=== PATIENT | female | born 1970 | race Caucasian/White ===

== ENCOUNTER 2019-12-07 08:30 | Emergency (ER) | payer BC, OTHER ==
[~2019-12-07] VITALS: Ht 165.1 cm; Wt 133.0 kg
[~2019-12-07 08:30] MED LIST: AMOX-260 PO; AMOX875T PO; ASPI81TA59 PO; CALC-515 PO; CALC200T3 PO; CLON1PAT9 TD; CYAN10002 IJ; DEXT30TA2 PO; DULO60CA6 PO; ERGO500027 PO; FENO145T3 PO; FENT1PAT17 TP; HYDR-1179 PO; HYDR-2155 PO; HYDR-3165 PO; METF10007 PO; METO25TA4 PO; MG T1TAB PO; MV W1TAB2 PO; NIAC1000 PO; OMEG-33 PO; OMEP20CA5 PO; ONDA4TAB10 SL; OXYC-411 PO; PANT40TA3 PO; PROG200C15 PO; PROM25SU33 RC; QUET100T4 PO; SERT100T PO; THYR32.57; VALS1TAB22 PO; [UNRECOGNIZED DRUG - CODE] PO
[2019-12-07] MEDS ORDERED: MORPHINE SULFATE 4 MG/ML DISP.SYRIN. IM ONE (09:15)
[2019-12-07] MEDS ORDERED: HYDR-3165 PO (09:17)
--- NOTE | 2019-12-07 09:17 | PHYS DOC ---
Past History Past Medical History: Anxiety, Bipolar, Diabetes, High Cholesterol, Hypertension, Hypothyroid Past Surgical History: Cholecystectomy, Hysterectomy Smoking: Cigarettes, Greater than 1 pack/day Alcohol Use: None Drug Use: Marijuana, Methadone, Other Adult General Chief Complaint Chief Complaint: Left knee pain [facility] HPI Patient is a 49-year-old female who is obese, history of chronic left knee ligament tear. She had an MRI done last year of her left knee, shown a tear in 1 of her left knee ligament. Patient has been doing okay until about 4 days ago she started having pain again, she feels like she heard something snapped in her left knee. Patient deny falling or twisted her knee. Patient is complaining of pain whenever she walks. Patient want an MRI done today of her left knee, did not want x-ray done. Patient has been able to walk on her left knee but with pain. Review of Systems Review of Systems Constitutional: Denies fever or chills [] Eyes: Denies change in visual acuity, redness, or eye pain [] HENT: Denies nasal congestion or sore throat [] Respiratory: Denies cough or shortness of breath [] Cardiovascular: No additional information not addressed in HPI [] GI: Denies abdominal pain, nausea, vomiting, bloody stools or diarrhea [] : Denies dysuria or hematuria [] Musculoskeletal: Denies back pain. Positive for left knee pain. Integument: Denies rash or skin lesions [] Neurologic: Denies headache, focal weakness or sensory changes [] Endocrine: Denies polyuria or polydipsia [] All other systems were reviewed and found to be within normal limits, except as documented in this note. Allergies Allergies Allergies Coded Allergies Type Severity Reaction Last Updated Verified Sulfa (Sulfonamide Antibiotics) Allergy Intermediate Hives 12/07/19 Yes ketorolac Allergy Intermediate 12/07/19 No tramadol Allergy Intermediate Hives 12/07/19 Yes aspirin Allergy Unknown 12/07/19 Yes Physical Exam Physical Exam Constitutional: Well developed, well nourished, no acute distress, non-toxic appearance. Morbidly obese. HENT: Normocephalic, atraumatic, bilateral external ears normal, oropharynx moist, no oral exudates, nose normal. [] Eyes: PERRLA, EOMI, conjunctiva normal, no discharge. [] Neck: Normal range of motion, no tenderness, supple, no stridor. [] Cardiovascular:Heart rate regular rhythm, no murmur [] Lungs & Thorax: Bilateral breath sounds clear to auscultation [] Abdomen: Bowel sounds normal, soft, no tenderness, no masses, no pulsatile masses. [] Skin: Warm, dry, no erythema, no rash. [] Back: No tenderness, no CVA tenderness. [] Extremities: There is no swelling of her left knee, the knee joint is stable, There is tenderness to palpation at the left medial collateral meniscus area. Neurologic: Alert and oriented X 3, normal motor function, normal sensory function, no focal deficits noted. [] Psychologic: Affect normal, judgement normal, mood normal. [] EKG EKG [] Radiology/Procedures Radiology/Procedures [] Course & Med Decision Making Course & Med Decision Making Pertinent Labs and Imaging studies reviewed. (See chart for details) Patient did not want xray done today. She wanted MRI done of her left knee today. This physician told patient that we cannot do MRI of her knee in the ER TODAY. She will need to follow up with her family doctor for outpatient MRI done. She was given pain medication, knee immobilizer. Dragon Disclaimer Dragon Disclaimer This electronic medical record was generated, in whole or in part, using a voice recognition dictation system. Departure Departure: Impression: Primary Impression: Left knee sprain Disposition: 01 HOME, SELF-CARE Condition: STABLE Referrals: [facility] [employer] [facility] (PCP) follow up with your doctor for outpatient evaluation of your left knee with MRI NEXT WEEK. Patient Instructions: Knee Immobilization, Knee Sprain Additional Instructions: Thank you for visiting our Emergency Department. We appreciate you trusting us with your care. If any additional problems come up don't hesitate to return to visit us. Please follow up with your primary care provider so they can plan additional care if needed and know about the problem that you had. If symptoms worsen come back to the Emergency Department. Any concerning symptoms that start such as chest pain, shortness of air, weakness or numbness on one side of the body, running high fevers or any other concerning symptoms return to the ER. Scripts Hydrocodone Bit/Acetaminophen (NORCO 5-325 TABLET) 1 Each Tablet 1 TAB PO PRN Q6HRS PRN for PAIN, #12 TAB 0 Refills Prov: JOANNE CALABRESE DO 12/07/19 JOANNE CALABRESE DO Dec 07, 2019 09:17
[2019-12-07 09:35] VITALS: BP 162/82
== END 2019-12-07 09:45 | disposition home or self-care (01) ==
LOC: ER 08:30
DX: S83.92XA Sprain of unspecified site of left knee, initial encounter (principal); E11.9 Type 2 diabetes mellitus without complications; E78.00 Pure hypercholesterolemia, unspecified; I10 Essential (primary) hypertension; E03.9 Hypothyroidism, unspecified; F17.210 Nicotine dependence, cigarettes, uncomplicated; Z88.2 Allergy status to sulfonamides; Z88.8 Allergy status to other drugs, medicaments and biological substances; Z88.6 Allergy status to analgesic agent; X50.9XXA Other and unspecified overexertion or strenuous movements or postures, initial encounter; Y93.89 Activity, other specified; Y92.89 Other specified places as the place of occurrence of the external cause; Y99.8 Other external cause status
CPT/HCPCS: 29505; 96372; 99283; J2270

== ENCOUNTER → 2020-01-30 | Outpatient (CLI) | payer OTHER ==
--- NOTE | 2020-01-30 10:49 | RAD ---
EXAM: AP view both knees, lateral and tangential patellar view left knee DATE: 01/30/2020 12:00 AM INDICATION: Left knee pain COMPARISON: No Prior FINDINGS: Left knee: Severe medial compartment joint space narrowing with tricompartmental osteophytes. Neutral patellar tracking. Small left knee joint effusion. No acute fracture or dislocation. Single AP view right knee demonstrates preserved joint spaces with small medial and lateral compartment osteophytes. IMPRESSION: 1. Severe left knee joint osteoarthritis. 2. Right knee joint degenerative changes are also seen. 3. No evidence of acute fracture or dislocation. Electronically signed by: Nick Caceres MD (01/30/2020 10:46 AM) [id number]
--- NOTE | 2020-01-30 11:06 | RAD ---
EXAM: Standing AP, oblique and lateral views of the right ankle DATE: 01/30/2020 12:00 AM INDICATION: Left ankle pain COMPARISON: No Prior FINDINGS: Pes planus. Calcaneal enthesopathy. No evidence of acute fracture or dislocation. Ankle mortise is congruent. Talar dome is intact. In general joint spaces are grossly preserved. IMPRESSION: 1. No evidence of acute fracture or dislocation. 2. Pes planus Electronically signed by: Nick Caceres MD (01/30/2020 11:02 AM) [id number]
== END | disposition home or self-care (01) ==
LOC: RAD 09:30
PROVIDERS: ATTEND Physician Assistant
DX: M17.0 Bilateral primary osteoarthritis of knee (principal); M77.8 Other enthesopathies, not elsewhere classified; M21.41 Flat foot [pes planus] (acquired), right foot; M25.762 Osteophyte, left knee; M25.761 Osteophyte, right knee
CPT/HCPCS: 73560; 73565; 73610

== ENCOUNTER → 2020-04-02 | Outpatient (CLI) | payer OTHER ==
--- NOTE | 2020-04-02 17:22 | RAD ---
LUMBAR SPINE 2-3V DATE: 04/02/2020 12:00 AM INDICATION: Reason: LOW BACK PAIN / Spl. Instructions: / History: COMPARISON: None. FINDINGS: Five non-rib bearing lumbar-type vertebral bodies are present. Bones/Alignment: No evidence of acute compression fracture. There is no listhesis. Joints: Mild to moderate multilevel degenerative disc disease. Lower lumbar facet arthropathy. Miscellaneous: Large colonic stool burden. IMPRESSION: Mild to moderate lumbar spondylosis. Electronically signed by: Kit Bennett MD (04/02/2020 5:19 PM) [id number]
== END ==
LOC: RAD 15:17
DX: M47.816 Spondylosis without myelopathy or radiculopathy, lumbar region (principal); M51.36 Other intervertebral disc degeneration, lumbar region
CPT/HCPCS: 72100

== ENCOUNTER → 2021-01-14 | Outpatient (CLI) | payer OTHER ==
[~2021-01-14] MED LIST changes: -OXYC-411 PO; +OXYC1TAB20 PO
--- NOTE | 2021-01-14 17:39 | RAD ---
Examination: 3 views of the right wrist HISTORY: History of right wrist pain COMPARISON: None available FINDINGS: The alignment of the carpal bones grossly appears unremarkable. Mild joint space loss identified in t he first and second carpometacarpal joints. There is no obvious acute fracture identified. IMPRESSION: Mild degenerative changes identified in the first and second carpometacarpal joints. Electronically signed by: Guilherme May MD (01/14/2021 5:37 PM) [id number]
== END ==
LOC: PMG 17:16
PROVIDERS: ATTEND Nurse Practitioner Family
DX: M19.031 Primary osteoarthritis, right wrist (principal); M18.11 Unilateral primary osteoarthritis of first carpometacarpal joint, right hand
CPT/HCPCS: 73110

== ENCOUNTER 2021-04-19 12:15 | Emergency (ER) | payer OTHER ==
[~2021-04-19] VITALS: Ht 162.6 cm; Wt 143.8 kg
[~2021-04-19 12:15] MED LIST changes: -VALS1TAB22 PO; +VALS1TAB23 PO
--- NOTE | 2021-04-19 12:34 | PHYS DOC ---
Past History Past Medical History: Anxiety, Bipolar, Diabetes, High Cholesterol, Hypertension, Hypothyroid (LLOYD MORENO [employer]) Past Surgical History: Cholecystectomy, Hysterectomy, Oophorectomy, Tubal ligation (LLOYD MORENO [employer]) Smoking: Cigarettes, Greater than 1 pack/day Alcohol Use: None Drug Use: Marijuana, Methadone, Other (LLOYD MORENO APRN) Adult General Chief Complaint Chief Complaint: MULTIPLE COMPLAINTS HPI HPI Patient is a 50-year-old female presents emergency department chief complaint of sudden onset epigastric pain last Wednesday, reports her pain a 7 or 8 out of 10, has had vomiting several bouts every day, states that when she eats or drinks her food comes back up, reports a diarrhea spell x1 today loose stool, denies seeing any blood in her stool or in her urine, denies any urinary pressure urine or urinary pain or urinary frequency, denies vaginal discharge rashes in her vaginal area or STI concerns. Reports she takes Trintellix for depression only, has not called her doctor to report her symptoms stating that she did not want to bother her. Patient states she has been dealing with her nausea and epigastric pain by smoking marijuana, patient states she was not smoking marijuana at onset of symptoms. Patient denies smoking cigarettes, drinking alcohol, or any other illicit drug use. Patient states she did try taking Maalox, Pepcid, dicyclomine for her pain but nothing helped, patient states that the smoking of marijuana did help with her symptoms some but her symptoms do come back. Patient denies recent fever or chills, rashes of her skin, chest pain or shortness of breath, denies palpitations, denies abdominal pain other than at her epigastric area, denies worsening of symptoms with deep breath or movement, denies back pains, denies numbness or tingling to her extremities, denies swelling to her extremities, denies increased thirst or increased urination. Patient denies any other physical complaints or physical concerns. Patient reports receiving her COVID-19 vaccinations. (LLOYD MORENO [employer]) Review of Systems Review of Systems 14 body systems of review of systems have been reviewed. See HPI for pertinent positives and negative responses, otherwise all other systems are negative, nonpertinent or noncontributory. Constitutional: Negative except as outlined in HPI above. Skin: Negative except as outlined in HPI above. Eyes: Negative except as outlined in HPI above. HENT: Negative except as outlined in HPI above. Respiratory: Negative except as outlined in HPI above. Cardiovascular: Negative except as outlined in HPI above. GI: Negative except as outlined in HPI above. : Negative except as outlined in HPI above. Musculoskeletal: Negative except as outlined in HPI above. Integument: Negative except as outlined in HPI above. Neurologic: Negative except as outlined in HPI above. Endocrine: Negative except as outlined in HPI above. Lymphatic: Negative except as outlined in HPI above. Psychiatric: Negative except as outlined in HPI above. (LLOYD MORENO APRN) Allergies Allergies Allergies Coded Allergies Type Severity Reaction Last Updated Verified Sulfa (Sulfonamide Antibiotics) Allergy Intermediate Hives 12/07/19 Yes ketorolac Allergy Intermediate 12/07/19 No tramadol Allergy Intermediate Hives 12/07/19 Yes aspirin Allergy Unknown 12/07/19 Yes (LLOYD MORENO APRN) Physical Exam Physical Exam Constitutional: Well developed, well nourished, mild distress, non-toxic appearance. 50-year-old female tearful holding epigastric area. HENT: Normocephalic, atraumatic. Eyes: Conjunctiva normal, no discharge. Neck: Normal range of motion. Cardiovascular: Distal cap refill less than 2 seconds, no cyanosis appreciated. Heart sounds S1-S2 to auscultation, normal rate and rhythm. Lungs & Thorax: Patient is in no respiratory distress, no adventitious lung sounds appreciated. No adventitious lung sounds appreciated per auscultation, Abdomen: Bowel sounds normal, soft, no masses, no pulsatile masses. No bruising or skin discoloration of the abdomen. Pain to palpation epigastric area. Skin: Warm, dry, no erythema, no rash. Back: No tenderness, no CVA tenderness. Extremities: No tenderness, no cyanosis, no clubbing, ROM intact, no edema. Neurologic: Alert and oriented X 3, normal motor function, normal sensory function, no focal deficits noted. Psychologic: Affect normal, judgement normal, mood normal. (LLOYD MORENO APRN) Current Patient Data Lab Results Laboratory Tests Test 04/19/21 13:00 04/19/21 13:55 04/19/21 15:15 White Blood Count 13.0 x10^3/uL Red Blood Count 5.09 x10^6/uL Hemoglobin 14.3 g/dL Hematocrit 43.4 % Mean Corpuscular Volume 85 fL Mean Corpuscular Hemoglobin 28 pg Mean Corpuscular Hemoglobin Concent 33 g/dL Red Cell Distribution Width 14.6 % Platelet Count 395 x10^3/uL Neutrophils (%) (Auto) 76 % Lymphocytes (%) (Auto) 18 % Monocytes (%) (Auto) 6 % Eosinophils (%) (Auto) 0 % Basophils (%) (Auto) 1 % Neutrophils # (Auto) 9.8 x10^3uL Lymphocytes # (Auto) 2.3 x10^3/uL Monocytes # (Auto) 0.7 x10^3/uL Eosinophils # (Auto) 0.0 x10^3/uL Basophils # (Auto) 0.1 x10^3/uL Sodium Level 144 mmol/L Potassium Level 3.2 mmol/L Chloride Level 105 mmol/L Carbon Dioxide Level 26 mmol/L Anion Gap 13 Blood Urea Nitrogen 15 mg/dL Creatinine 1.1 mg/dL Estimated GFR (Cockcroft-Gault) 53.0 BUN/Creatinine Ratio 14 Glucose Level 108 mg/dL Calcium Level 8.3 mg/dL Phosphorus Level 4.1 mg/dL Magnesium Level 2.2 mg/dL Total Bilirubin 0.5 mg/dL Aspartate Amino Transf (AST/SGOT) 8 U/L Alanine Aminotransferase (ALT/SGPT) 18 U/L Alkaline Phosphatase 127 U/L Troponin I Quantitative < 0.017 ng/mL Total Protein 6.9 g/dL Albumin 3.8 g/dL Albumin/Globulin Ratio 1.2 Lipase 99 U/L Acetone Level Neg Urine Collection Type Unknown Urine Color Deloris Urine Clarity Hazy Urine pH 6.5 Urine Specific [place] 1.020 Urine Protein 100 mg/dl Urine Glucose (UA) Neg mg/dL Urine Ketones (Stick) Neg mg/dL Urine Blood Neg Urine Nitrite Neg Urine Bilirubin Neg Urine Urobilinogen Dipstick 0.2 mg/dL Urine Leukocyte Esterase Neg Urine RBC 0 /HPF Urine WBC 1-4 /HPF Urine Squamous Epithelial Cells Mod /LPF Urine Bacteria Few /HPF Urine Mucus Mod /LPF Current Medications Medications (Trade) Dose Ordered Sig/Pia Route PRN Reason Start Time Stop Time Status Last Admin Dose Admin Fentanyl Citrate (Fentanyl 2ml Vial) 50 mcg 1X ONCE IVP 04/19/21 12:45 04/19/21 13:00 DC 04/19/21 13:16 Ondansetron HCl (Zofran) 4 mg 1X ONCE IVP 04/19/21 12:45 04/19/21 13:00 DC 04/19/21 13:13 Sodium Chloride 1,000 ml @ 1,000 mls/hr 1X ONCE IV 04/19/21 12:45 04/19/21 13:44 DC 04/19/21 13:13 Multi-Ingredient Mouthwash/Gargle (Gi Cocktail) 20 ml 1X ONCE PO 04/19/21 13:30 04/19/21 13:35 DC 04/19/21 13:38 Diphenhydramine HCl (Benadryl) 25 mg 1X ONCE IVP 04/19/21 14:15 04/19/21 14:27 DC 04/19/21 14:18 Metoclopramide HCl (Reglan Vial) 10 mg 1X ONCE IVP 04/19/21 14:15 04/19/21 14:27 DC 04/19/21 14:20 Fentanyl Citrate (Fentanyl 2ml Vial) 100 mcg 1X ONCE IVP 04/19/21 14:15 04/19/21 14:27 DC 04/19/21 14:21 Iohexol (Omnipaque 300 Mg/ml) 75 ml 1X ONCE IV 04/19/21 14:15 04/19/21 14:27 DC 04/19/21 14:15 Fentanyl Citrate (Fentanyl 2ml Vial) 100 mcg 1X ONCE IVP 04/19/21 16:15 04/19/21 16:24 DC 04/19/21 16:32 (LLOYD MORENO APRN) EKG EKG EKG performed at 1318 by ED nursing staff shows a normal sinus rhythm without other ectopy, heart rate 55 bpm, [place] interval 0.182, QTc interval 0.417, no acute STEMI, no ACS, no acute ischemia appreciated. EKG interpreted by ED attending physician Dr. Coreas. (LLOYD MORENO APRN) Radiology/Procedures Radiology/Procedures PATIENT: MEDHAT VASQUEZ MACCOUNT: [id number] : 1970 LOCATION: ER AGE: 50 SEX: F EXAM STATUS: REG ER ORD. PHYSICIAN: LLOYD MORENO APRN REASON: chest pain PROCEDURE: CHEST AP ONLY EXAM: XR CHEST 1V 04/19/2021 12:44 PM CLINICAL INDICATION: Chest pain COMPARISON: 09/15/2016 TECHNIQUE: AP view of the chest FINDINGS: The heart and mediastinum are normal. Lungs are well-expanded and clear. No consolidation, pleural effusion, or pneumothorax. Pulmonary vascularity is normal. No acute osseous abnormality. IMPRESSION: Normal chest radiograph. Electronically signed by: Kiera Owens MD (04/19/2021 1:29 PM) [id number] DICTATED AND SIGNED BY: KIERA OWENS MD DATE: 04/19/21 1329 CC: LLOYD MORENO APRN; TIBURCIO VARGAS MASH TUB COOKER ~MTH0 0 PATIENT: MEDHAT VASQUEZ MACCOUNT: [id number] : 1970 LOCATION: ER AGE: 50 SEX: F EXAM STATUS: REG ER ORD. PHYSICIAN: LLOYD MORENO APRN REASON: epigastric pain, intractable nausea/vomiting PROCEDURE: CT ABD PELV W/ IV CONTRST ONLY Study: CT abdomen/pelvis with intravenous contrast Indication: Epigastric pain. Nausea and vomiting. Comparison: 02/20/2016 Technique: Helical CT imaging performed of the abdomen and pelvis after the intravenous administration of 75 cc Omnipaque 300 contrast. Sagittal and coronal reformats were obtained. One or more of the following individualized dose reduction techniques were utilized for this examination: 1. Automated exposure control 2. Adjustment of the mA and/or kV according to patient size 3. Use of iterative reconstruction technique. Findings: No acute abnormality at the lower chest. Right middle lobe granuloma. No focal hepatic parenchymal abnormality. Surgically absent gallbladder. Nondilated biliary tree. Unremarkable pancreas and spleen. Redemonstration of bilateral adrenal adenomas. The larger right adrenal gland nodule has slightly increased in size now measuring 4 cm AP by 3 cm transverse compared to 3.3 x 2.6 cm but is still consistent with a benign finding. Unchanged size of the left adrenal gland adenoma measuring 2.5 cm AP. A left renal cystic focus on image 31 series 2 was subtly present on the comparison. No complex cyst or mass. No stone or hydronephrosis. Unremarkable bladder. Absent uterus. No adnexal mass. Limited assessment of the bowel without oral contrast. No acute abnormality of the colon noting luminal collapse. No localized pericolonic inflammation. Normal appendix. Nonobstructed small bowel. Unremarkable stomach. Unremarkable major vasculature. No lymphadenopathy. No free fluid or pneu moperitoneum. Tiny fat-containing umbilical hernia. Scattered chronic/degenerative osseous findings. No acute or aggressive abnormality. The greatest degree of osseous neural foraminal stenosis is on the left at L5-S1. No evidence for severe central canal narrowing. Impression: 1. No acute abnormality seen throughout the abdomen or pelvis with particular attention paid to the gastrointestinal tract given history of epigastric pain and nausea/vomiting. 2. Chronic observations as described in the body of the report to include bilateral adrenal gland adenomas. Electronically signed by: AMY AYOUB MD (04/19/2021 3:45 PM) [id number] DICTATED AND SIGNED BY: AMY AYOUB MD DATE: 04/19/21 1537 CC: LLOYD MORENO APRN; TIBURCIO VARGAS MASH TUB COOKER ~MTH0 0 (LLOYD MORENO APRN) Heart Score C/O Chest Pain: Yes HEART Score for Chest Pain: HEART Score for Chest Pain Response (Comments) Value History Slighlty/Non-Suspicious 0 ECG Normal 0 Age >45 - < 65 1 Risk Factors 1 or 2 Risk Factors 1 Troponin < Normal Limit 0 Total 2 Risk Factors: Risk Factors: DM, Current or recent (<one month) smoker, HTN, HLP, family history of CAD, obesity. Risk Scores: Risk Factors: DM, Current or recent (<one month) smoker, HTN, HLP, family history of CAD, obesity. (LLOYD MORENO APRN) Course & Med Decision Making Course & Med Decision Making Pertinent Labs and Imaging studies reviewed. (See chart for details) 42-year-old female, vital signs reviewed, presents emergency department chief complaint of nausea vomiting with epigastric pain. Physical examination concerning for dyspepsia versus marijuana induced cyclic vomiting versus other abdominal process. Will order IV fluids, antinausea medication, pain medication, labs, urinalysis assay. Patient's labs nonconcerning, except for potassium is 3.2, patient states that she has had low potassiums in the past and prefers not to take the potassium supplement offered by the hospitalist, patient states she prefers to take oral supplements at home. Will order CT abdomen pelvis to rule out acute abdominal process as patient's urine was not infected. CT abdomen pelvis nonconcerning, showed chronic unchanged adrenal abnormalities, patient states she is aware of this and her doctor is following this closely. Patient states that she would like Phenergan for nausea at home, patient states she would like to be discharged home at this time as she is now pain-free. Patient gave verbal understanding discharge home instructions, follow-up with PCP this week, return to ER precautions and concerns, patient had no further questions or concerns and was discharged home without incident, patient is hemodynamically stable, nontoxic in appearance, states her pain is now a 1 out of 10. (LLOYD MORENO APRN) Dragon Disclaimer Dragon Disclaimer This electronic medical record was generated, in whole or in part, using a voice recognition dictation system. (LLOYD MORENO APRN) Attending Co-Sign The patient was seen and interviewed as well as examined at the bedside. The chart was reviewed. The case was discussed. Agree with the plan of care. (KAILYN COREAS DO) Departure Departure: Impression: Primary Impression: Epigastric abdominal pain of unknown etiology Additional Impression: Nausea and vomiting Disposition: 01 HOME / SELF CARE / HOMELESS Condition: GOOD Referrals: TIBURCIO VARGAS MASH TUB COOKER (PCP) Patient Instructions: Abdominal Pain, Nausea and Vomiting Additional Instructions: You were seen today in the emergency department for epigastric pain with nausea and vomiting. An extensive work-up to include urinalysis assay, serum blood work, CT abdomen pelvis, chest x-ray, EKG was performed. There were no con cerning findings that would suggest admission to the hospital or immediate attention by a specialist. You have had some relief with the pain medications you are given, your nausea was relieved with the Reglan you are given IV, please follow-up with your primary care physician this week for reexamination and consideration for follow-up with a GI specialist, I am prescribing you Phenergan tablets for nausea. Please take as directed. Thank you for visiting our Emergency Department. It was a pleasure taking care of you today in the emergency department and we appreciate you trusting us with your care. If any additional problems come up don't hesitate to return to visit us. Please follow up with your primary care provider so they can plan additional care if needed and know about the problem that you had. If symptoms worsen come back to the Emergency Department. Any concerning symptoms that start such as chest pain, shortness of air, weakness or numbness on one side of the body, running high fevers or any other concerning symptoms return to the ER. EMERGENCY DEPARTMENT GENERAL DISCHARGE INSTRUCTIONS Thank you for coming to [facility] (ED) today and trusting us with you care. We trust that you had a positivie experience in our Emergency Department. If you wish to speak to the department management, you may call the director at [phone]. YOUR FOLLOW UP INSTRUCTIONS ARE FOLLOWS: 1. Do you have a private Doctor? If you do not have a private doctor, please ask for a resource list of physicians or clinics that may be able to assist you with follow up care. 2. The Emergency Physician has interpreted your x-rays. The X-Ray specialist will also review them. If there is a change in the findings, you will be notified in 48 hours when at all possible. 3. A lab test or culture has been done, your results will be reviewed and you will be notified if you need a change in treatment. ADDITIONAL INSTRUCTIONS AND INFORMATION: 1. Your care today has been supervised by a physician who is specially trained in emergency care. Many problems require more than one evaluation for a complete diagnosis and treatment. We recommend that you schedule your follow up appointment as recommended to ensure complete treatment of you illness or injury. If you are unable to obtain follow up care and continue to have a problem, or if your condition worsens, we recommend that you return to the ED. 2. We are not able to safely determine your condition over the phone nor are we able to give sound medical advice over the phone. For these safety reasons, if you call for medical advice we will ask you to come to the ED for further evaluation. 3. If you have any questions regarding these discharge instructions please call the ED at [phone]. SAFETY INFORMATION: In the interest of safety, wellness, and injury prevention; we encourage you to wear your sealbelt, if you smoke; quite smoking, and we encourage family to use a protective helmet for bicycling and other sporting events that present an increased risk for head injury. IF YOUR SYMPTOMS WORSEN OR NEW SYMPTOMS DEVELOP, OR YOU HAVE CONCERNS ABOUT YOUR CONDITION; OR IF YOUR CONDITION WORSENS WHILE YOU ARE WAITING FOR YOUR FOLLOW UP APPOINTMENT; EITHER CONTACT YOUR PRIMARY CARE DOCTOR, THE PHYSICIAN WHOSE NAME AND NUMBER YOU WERE GIVEN, OR RETURN TO THE ED IMMEDIATELY. Scripts Promethazine Hcl (PROMETHAZINE HCL) 25 Mg Tablet 1 TAB PO PRN Q6HRS for nausea, #20 TAB 0 Refills Prov: LLOYD MORENO APRN 04/19/21 Problem Qualifiers Additional Impression: Nausea and vomiting Vomiting type: unspecified Vomiting Intractability: non-intractable Qualified Codes: R11.2 - Nausea with vomiting, unspecified LLOYD MORENO APRN Apr 19, 2021 12:34 KAILYN COREAS DO Apr 20, 2021 06:16
[2021-04-19] MEDS ORDERED: ONDANSETRON PF 4 MG/2 ML VIAL. IVP ONE (12:45)
[2021-04-19] MEDS ORDERED: IV NORMAL SALINE 1,000ML 1,000 ML IV ONE (12:45)
[2021-04-19] MEDS ORDERED: LIDO:MAALOX 1:1 20 ML SINGLE DOSE. PO ONE (13:30)
[2021-04-19 13:32] LABS: BASO # 0.1 x10^3/uL (0.0-0.2); BASO % 1 % (0-3); EOS % 0 % (0-3); HEMATOCRIT 43.4 % (36.0-47.0); HEMOGLOBIN 14.3 g/dL (12.0-15.5); LYMPH # 2.3 x10^3/uL (1.0-4.8); LYMPH % 18 % (24-48); MEAN CORPUSCULAR HEMOGLOBIN 28 pg (25-35); MEAN CORPUSCULAR HGB CONC 33 g/dL (31-37); MEAN CORPUSCULAR VOLUME 85 fL (79-100); MONO # 0.7 x10^3/uL (0.0-1.1); MONO % 6 % (0-9); NEUT # 9.8 x10^3uL (1.8-7.7); NEUT % 76 % (31-73); PLATELET COUNT 395 x10^3/uL (140-400); RED BLOOD COUNT 5.09 x10^6/uL (3.50-5.40); RED CELL DISTRIBUTION WIDTH 14.6 % (11.5-14.5)
--- NOTE | 2021-04-19 13:32 | EKG ---
[address] [address] Test Date: 2021-04-19 Test Time: 13:18:36 Pat Name: MEDHAT VASQUEZ Department: Room: Gender: F Tax Assistant: RUSTAM : 1970 Requested By: LLOYD MORENO Order Number: [id number] Reading MD: Measurements Intervals [place] Rate: 55 P: 12 VT: 182 QRS: 5 QRSD: 96 T: 21 QT: 434 QTc: 417 Interpretive Statements SINUS RHYTHM NORMAL ECG RI6.02 No previous ECG available for comparison
--- NOTE | 2021-04-19 13:32 | RAD ---
EXAM: XR CHEST 1V 04/19/2021 12:44 PM CLINICAL INDICATION: Chest pain COMPARISON: 09/15/2016 TECHNIQUE: AP view of the chest FINDINGS: The heart and mediastinum are normal. Lungs are well-expanded and clear. No consolidatio n, pleural effusion, or pneumothorax. Pulmonary vascularity is normal. No acute osseous abnormality. IMPRESSION: Normal chest radiograph. Electronically signed by: Soraida Owens MD (04/19/2021 1:29 PM) [id number]
[2021-04-19] MEDS ORDERED: diphenhydrAMINE 50 MG/ML VIAL IVP ONE (14:15)
[2021-04-19] MEDS ORDERED: METOCLOPRAMIDE HCL 10 MG/2 ML VIAL. IVP ONE (14:15)
[2021-04-19] MEDS ORDERED: IOHEXOL 300 MG/ML 75 ML VIAL. IV ONE (14:15)
[2021-04-19 14:43] LABS: CALCIUM 8.3 mg/dL (8.5-10.1); CREATININE 1.1 mg/dL (0.6-1.0); POTASSIUM 3.2 mmol/L (3.5-5.1)
[2021-04-19 14:50] LABS: ALBUMIN 3.8 g/dL (3.4-5.0); ALBUMIN/GLOBULIN RATIO 1.2 (1.0-1.7); MAGNESIUM 2.2 mg/dL (1.8-2.4); PHOSPHORUS 4.1 mg/dL (2.6-4.7); TOTAL BILIRUBIN 0.5 mg/dL (0.2-1.0); TOTAL PROTEIN 6.9 g/dL (6.4-8.2)
--- NOTE | 2021-04-19 15:47 | RAD ---
Study: CT abdomen/pelvis with intravenous contrast Indication: Epigastric pain. Nausea and vomiting. Comparison: 02/20/2016 Technique: Helical CT imaging performed of the abdomen and pelvis after the intravenous administratio n of 75 cc Omnipaque 300 contrast. Sagittal and coronal reformats were obtained. One or more of the following individualized dose reduction techniques were utilized for this examinat ion: 1. Automated exposure control 2. Adjustment of the mA and/or kV according to patient size 3. Use of iterative reconstruction technique. Findings: No acute abnormality at the lower chest. Right middle lobe granuloma. No focal hepatic parenchymal abnormality. Surgically absent gallbladder. Nondilated biliary tree. Unr emarkable pancreas and spleen. Redemonstration of bilateral adrenal adenomas. The larger right adrena l gland nodule has slightly increased in size now measuring 4 cm AP by 3 cm transverse compared to 3. 3 x 2.6 cm but is still consistent with a benign finding. Unchanged size of the left adrenal gland ad enoma measuring 2.5 cm AP. A left renal cystic focus on image 31 series 2 was subtly present on the comparison. No complex cyst or mass. No stone or hydronephrosis. Unremarkable bladder. Absent uterus. No adnexal mass. Limited assessment of the bowel without oral contrast. No acute abnormality of the colon noting lumin al collapse. No localized pericolonic inflammation. Normal appendix. Nonobstructed small bowel. Unrem arkable stomach. Unremarkable major vasculature. No lymphadenopathy. No free fluid or pneumoperitoneum. Tiny fat-conta ining umbilical hernia. Scattered chronic/degenerative osseous findings. No acute or aggressive abnor mality. The greatest degree of osseous neural foraminal stenosis is on the left at L5-S1. No evidence for severe central canal narrowing. Impression: 1. No acute abnormality seen throughout the abdomen or pelvis with particular attention paid to the gastrointestinal tract given history of epigastric pain and nausea/vomiting. 2. Chronic observations as described in the body of the report to include bilateral adrenal gland ad enomas. Electronically signed by: AMY AYOUB MD (04/19/2021 3:45 PM) [id number]
[2021-04-19 16:06] LABS: BILIRUBIN,URINE NEG (NEG); CLARITY,URINE HAZY; COLOR,URINE AMBER; GLUCOSE,URINE NEG (NEG); NITRITE,URINE NEG (NEG); RBC,URINE 0 /HPF (0-2); UROBILINOGEN,URINE 0.2 mg/dL (0.2 mg/dL)
[2021-04-19 16:07] LABS: BACTERIA,URINE FEW /HPF (0-FEW); SQUAMOUS EPITHELIAL CELL,UR MOD /LPF
[2021-04-19] MEDS ORDERED: PROM25TA10 PO (17:02)
[2021-04-19 17:05] VITALS: BP 174/85
== END 2021-04-19 17:10 | disposition home or self-care (01) ==
LOC: ER 12:15
DX: R10.13 Epigastric pain (principal); R11.2 Nausea with vomiting, unspecified; R19.7 Diarrhea, unspecified; F41.9 Anxiety disorder, unspecified; F31.9 Bipolar disorder, unspecified; E11.9 Type 2 diabetes mellitus without complications; E78.00 Pure hypercholesterolemia, unspecified; I10 Essential (primary) hypertension; E03.9 Hypothyroidism, unspecified; F17.210 Nicotine dependence, cigarettes, uncomplicated; Z90.89 Acquired absence of other organs; Z90.710 Acquired absence of both cervix and uterus; Z98.51 Tubal ligation status; Z88.2 Allergy status to sulfonamides; Z88.6 Allergy status to analgesic agent; Z88.8 Allergy status to other drugs, medicaments and biological substances
CPT/HCPCS: 36415; 71045; 74177; 80053; 81001; 82010; 83690; 83735; 84100; 84484; 85025; 93005; 96361; 96374; 96375; 96376; 99285; J1200; J2405; J2765; J3010; J7030; Q9967